=== PATIENT | female | born 1995 | race Caucasian/White ===

== ENCOUNTER 2022-04-10 22:45 | Observation (INO) | payer OTHER ==
[2022-04-11] MEDS ORDERED: ACETAMINOPHEN 1000 MG/100 ML BAG IVPB ONE (00:08)
[2022-04-11] MEDS ORDERED: SODIUM CHLORIDE 0.9% 500 ML INFUS.BAG IV ONE (00:09)
[2022-04-11] MEDS ORDERED: FAMOTIDINE 20 MG/50 ML IVPB 20 MG/50 ML MG IVPB ONE (00:37)
[2022-04-11 01:10] LABS: HCG,QUALITATIVE URINE Negative
[2022-04-11 01:39] LABS: URINE APPEARANCE CLEAR; URINE BILIRUBIN NEGATIVE (NEGATIVE); URINE COLOR YELLOW; URINE GLUCOSE (UA) NEGATIVE (NEGATIVE); URINE KETONE NEGATIVE (NEGATIVE); URINE LEUK ESTERASE NEGATIVE (NEGATIVE); URINE NITRITE NEGATIVE (NEGATIVE); URINE PROTEIN NEGATIVE (NEGATIVE)
[2022-04-11] MEDS ORDERED: FAMOTIDINE 10 MG/ML VIAL IVPB ONE (02:03)
[2022-04-11 02:11] LABS: BASO % 0.5 % (0-2.0); EOS % 0.6 % (0-4.5); HEMATOCRIT 38.2 % (32.4-45.2); LYMPH % 24.6 % (8-40); MCH 26.3 pg (25.7-33.7); MCHC 31.5 g/dl (32.0-36.0); MEAN CELL VOLUME 83.4 fl (80-96); MEAN PLT VOLUME 11.1 fl (7.5-11.1); MONO % 5.2 % (3.8-10.2); NEUT % 69.1 % (42.8-82.8); PLATELET COUNT 227 10^3/uL (134-434); RBC 4.58 M/mm3 (3.60-5.2); RDW 13.6 % (11.6-15.6); WHITE BLOOD COUNT 10.9 K/mm3 (4.0-10.0)
[2022-04-11 02:20] LABS: INR 1.09 (0.83-1.09); PROTHROMBIN TIME (PATIENT) 12.5 SEC (9.7-13.0)
[2022-04-11 02:22] LABS: ACTIVATED PTT 29.9 SECONDS (25.2-36.5)
[2022-04-11 02:33] LABS: CALCIUM 9.1 mg/dL (8.5-10.1)
[2022-04-11 02:34] LABS: ALBUMIN 3.6 g/dl (3.4-5.0); BLOOD UREA NITROGEN 13.7 mg/dL (7-18); MAGNESIUM 2.1 mg/dL (1.8-2.4)
[2022-04-11 02:37] LABS: CREATININE 0.8 mg/dL (0.55-1.3)
[2022-04-11 02:38] LABS: TOT PROT 7.9 g/dl (6.4-8.2)
[2022-04-11 02:39] LABS: BILIRUBIN,TOTAL 0.2 mg/dL (0.2-1)
[2022-04-11] MEDS ORDERED: ACETAMINOPHEN 1000 MG/100 ML BAG IVPB PRN (04:05)
[2022-04-11] MEDS ORDERED: SODIUM CHLORIDE 1,000 ML IV SCH (04:15)
[2022-04-11 07:59] LABS: BASO % 0.5 % (0-2.0); EOS % 0.7 % (0-4.5); HEMATOCRIT 35.6 % (32.4-45.2); HEMOGLOBIN 11.1 GM/dL (10.7-15.3); MCH 26.2 pg (25.7-33.7); MCHC 31.3 g/dl (32.0-36.0); MEAN CELL VOLUME 83.7 fl (80-96); MEAN PLT VOLUME 10.7 fl (7.5-11.1); MONO % 6.2 % (3.8-10.2); NEUT % 52.6 % (42.8-82.8); PLATELET COUNT 213 10^3/uL (134-434); RBC 4.25 M/mm3 (3.60-5.2); RDW 13.8 % (11.6-15.6); WHITE BLOOD COUNT 8.2 K/mm3 (4.0-10.0)
[2022-04-11 08:31] LABS: CALCIUM 8.7 mg/dL (8.5-10.1)
[2022-04-11 08:32] LABS: ALBUMIN 3.1 g/dl (3.4-5.0)
[2022-04-11 08:34] LABS: CREATININE 0.6 mg/dL (0.55-1.3)
[2022-04-11 08:35] LABS: BILIRUBIN,TOTAL 0.3 mg/dL (0.2-1)
[2022-04-11 08:37] VITALS: BP 115/62; PULSE 74; RESP 17; TEMP 98.3
[2022-04-11 11:01] VITALS: BMI 25.2
== END 2022-04-11 19:05 | disposition home or self-care (01) ==
LOC: EDSEX 22:45 → JER 22:45 → JERBED 04-11 02:43 → J5S 04-11 08:22
PROVIDERS: ADMIT Internal Medicine; ATTEND Nurse Practitioner Acute Care
PROC: 3E033GC Introduction of Other Therapeutic Substance into Peripheral Vein, Percutaneous Approach (ICD-10-PCS; principal; 2022-04-11)
PROC: 3E033NZ Introduction of Analgesics, Hypnotics, Sedatives into Peripheral Vein, Percutaneous Approach (ICD-10-PCS; 2022-04-11)
PROC: 3E0337Z Introduction of Electrolytic and Water Balance Substance into Peripheral Vein, Percutaneous Approach (ICD-10-PCS; 2022-04-11)
DX: K80.50 Calculus of bile duct without cholangitis or cholecystitis without obstruction (principal); Z88.6 Allergy status to analgesic agent; R00.0 Tachycardia, unspecified
CPT/HCPCS: 36415; 76705-TC; 78226-TC; 80053; 81003; 83036; 83605; 83690; 83735; 84100; 84703; 85025; 85610; 85730; 86850; 86900; 86901; 87086; 87186; 96361; 96365; 96375; 99285-25; A9537; C9803-CS; G0378; U0003; U0005